=== PATIENT | female | born 1965 | race Caucasian/White ===

== ENCOUNTER 2017-07-24 10:33 | Day surgery (SDC) | payer OTHER ==
[~2017-07-24 10:33] MED LIST: Lactated Ringers 1,000 ML IV SCH; Lidocaine 1%/Sod Bicarbonate in NS 8.4% 1 ML Syringe IDERM PRN; Sodium Chloride 0.9% 10 ML Syringe FLUSH PRN
[2017-07-24] MEDS ORDERED: Midazolam 1 MG/ML 2 ML SDV ONE (11:07)
[2017-07-24] MEDS ORDERED: Lidocaine 1% 4 ML ONE (11:07)
[2017-07-24] MEDS ORDERED: Propofol 200 MG/20 ML SDV ONE (11:07)
[2017-07-24] MEDS ORDERED: fentaNYL 250 MCG/5 ML SDV ONE (11:07)
[2017-07-24] MEDS ORDERED: Ondansetron 4 MG/2 ML SDV ONE (11:07)
[2017-07-24] MEDS ORDERED: ceFAZolin 1 GM Vial ONE (11:08)
--- NOTE | 2017-07-24 11:08 | PCM.PREANE ---
Preanesthetic Assessment - Anesthesia/Transfusion/Family Hx Anesthesia History: Prior Anesthesia Without Reaction Family History of Anesthesia Reaction: No Transfusion History: No Prior Transfusion(s) - Review of Systems General: No Symptoms Pulmonary: No Symptoms Cardiovascular: No Symptoms Gastrointestinal: No Symptoms Neurological: No Symptoms Other: Reports: None - Physical Assessment NPO Status Date: 07/23/17 NPO Status Time: 23:00 Pulse: 77 O2 Sat by Pulse Oximetry: 95 Respiratory Rate: 18 Blood Pressure: 142/84 Temperature: 36.4 C Vital Signs: Last Vital Signs Temp 36.4 C 07/24/17 10:37 Pulse 71 07/24/17 10:37 Resp 18 07/24/17 10:37 BP 142/84 H 07/24/17 10:37 Pulse Ox 95 07/24/17 10:37 Height: 1.78 m Weight: 96.615 kg ASA Class: 2 Mental Status: Alert & Oriented x3 Airway Class: Mallampati = 1 Dentition: Reports: Normal Dentition Thyro-Mental Finger Breadths: 3 Mouth Opening Finger Breadths: 3 ROM/Head Extension: Full Lungs: Clear to Auscultation, Normal Respiratory Effort Cardiovascular: Regular Rate, Regular Rhythm, No Murmurs - Allergies Allergies/Adverse Reactions: Allergies Allergy/AdvReac Type Severity Reaction Status Date / Time No Known Allergies Allergy Verified 07/24/17 11:01 - Blood Blood Available: No Product(s) Available: None - Anesthesia Plan Pre-Op Medication Ordered: None - Acknowledgements Anesthesia Type Planned: General Anesthesia Pt an Appropriate Candidate for the Planned Anesthesia: Yes Alternatives and Risks of Anesthesia Discussed w Pt/Guardian: Yes Pt/Guardian Understands and Agrees with Anesthesia Plan: Yes PreAnesthesia Questionnaire HEENT History: Reports: Sinusitis, Other (See Below) Other HEENT History: tongue sore Cardiovascular History: Reports: Blood Clots/VTE/DVT Other Cardiovascular History: DVT Left lower leg 2012 Respiratory History: Reports: None Gastrointestinal History: Reports: GERD, Other (See Below) Other Gastrointestinal History: nausea Genitourinary History: Reports: None [employer]ER History: Reports: Musculoskeletal History: Reports: Back Pain, Chronic, Fibromyalgia, Other (See Below) Other Musculoskeletal History: calf pain, neck pain, 5th metatarsal fracture, neck stiffness, swelling, right knee pain Neurological History: Reports: Headaches, Chronic, Migraines Psychiatric History: Reports: Anxiety, Depression Endocrine/Metabolic History: Reports: None Hematologic History: Reports: Other (See Below) Other Hematologic History: blood clotting disorder Immunologic History: Reports: None Oncologic (Cancer) History: Reports: None Dermatologic History: Reports: None - Past Surgical History Head Surgeries/Procedures: Reports: None HEENT Surgical History: Reports: Naso-Sinus Surgery, Tonsillectomy Cardiovascular Surgical History: Reports: None Respiratory Surgical History: Reports: None GI Surgical History: Reports: Colonoscopy, Hernia Repair/Other Female Surgical History: Reports: Hysterectomy, Oophorectomy Male Surgical History: Reports: None Endocrine Surgical History: Reports: None Neurological Surgical History: Reports: None Musculoskeletal Surgical History: Reports: Arthroscopic Knee, Carpal Tunnel Other Musculoskeletal Surgeries/Procedures:: L ankle surgery Oncologic Surgical History: Reports: None Dermatological Surgical History: Reports: None - SUBSTANCE USE Smoking Status *Q: Never Smoker Tobacco Use Within Last Twelve Months: No Second Hand Smoke Exposure: Yes Days Per Week of Alcohol Use: 1 Number of Drinks Per Day: 1 Total Drinks Per Week: 1 Recreational Drug Use History: No - HOME MEDS Home Medications: Home Meds ALPRAZolam [Xanax] 0.5 mg PO BID PRN 03/02/15 [History] Aspirin/Acetaminophen/Caffeine [Vsskmgx-Ttelxmpdcrjud-Kfso Tab] 1 each PO ASDIRECTED PRN 11/16/15 [History] Cyclobenzaprine [Flexeril] 10 mg PO BID PRN 07/23/17 [History] DULoxetine HCl [Duloxetine HCl] 60 mg PO DAILY 07/23/17 [History] Omeprazole Magnesium [Prilosec Otc] 20 mg PO DAILY 07/23/17 [History] - CURRENT (IN HOUSE) MEDS Current Meds: Current Medications Lactated Ringer's (Ringers, Lactated) 1,000 mls @ 125 mls/hr IV ASDIRECTED JEFFREY Stop: 07/24/17 23:00 Lidocaine/Sodium Bicarbonate (Buffered Lidocaine 1% In Ns 8.4%) 0.25 ml IDERM ONETIME PRN PRN Reason: Prior to IV Start Stop: 07/24/17 18:00 Sodium Chloride (Saline Flush) 10 ml FLUSH ASDIRECTED PRN PRN Reason: Keep Vein Open Stop: 07/24/17 18:00
[2017-07-24] MEDS ORDERED: HYDROmorphone 0.5 MG/0.5 ML Syringe IVPUSH PRN (11:31)
[2017-07-24] MEDS ORDERED: fentaNYL 100 MCG/2 ML SDV IVPUSH PRN (11:31)
[2017-07-24] MEDS ORDERED: Ondansetron 4 MG/2 ML SDV IVPUSH PRN (11:31)
[2017-07-24] MEDS: Lidocaine 1% with EPINEPHrine 1:100,000 20 ML MDV ONE ×2 (11:33→11:38)
[2017-07-24] MEDS: Bupivacaine 0.5%/EPINEPHrine 1:200,000 50 ML MDV ONE ×2 (11:33→11:38)
[2017-07-24] MEDS ORDERED: Phenylephrine/Normal Saline 100 MCG/ML 10 ML Syringe ONE (11:56)
[2017-07-24] MEDS ORDERED: Dexamethasone 4 MG/ML 5 ML MDV ONE (11:57)
[2017-07-24] MEDS ORDERED: Ketorolac 30 MG/ML SDV ONE (12:27)
--- NOTE | 2017-07-24 12:36 | PCM.OPNOTE ---
- General Post-Op/Procedure Note Date of Surgery/Procedure: 07/24/17 Operative Procedure(s): Open umbilical hernia repair with mesh Findings: Incarcerated umbilical hernia containing omental fat with a mature sac and chronic scarring Pre Op Diagnosis: Symptomatic incarcerated umbilical hernia Post-Op Diagnosis: Same Anesthesia Technique: General LMA, Local Primary Surgeon: Moisés Alvarado Pathology: None EBL in mLs: 10 Complications: None Condition: Good Free Text/Narrative:: After adequate LMA general anesthesia was obtained the patient's abdomen was prepped then draped sterilely for an open umbilical hernia repair. After local analgesia was given a supraumbilical incision was made with a 15 blade through the skin into the subcutaneous tissues. I then used Metzenbaum scissors to separate the umbilical skin away from the hernia sac. I then the hernia sac from the surrounding subcutaneous tissues sharply and with cautery down to the fascia which was cleared about a centimeter so around the defect. The sac was then opened sharply then excised. The omentum could not be reduced because of its bulk. I clamped the base of the tongue of the omentum and then ligated it with a 3-0 Vicryl after excision. This allowed the omental stump to be easily reduced. I measured the fascial defect to 2 cm in diameter. A 4.6 cm mesh was then placed through the defect and secured to the fascia with closure using interrupted 0 Ethibond 6. I irrigated out the field with saline then reattached the umbilical skin to the midline. The subcutaneous tissues were closed with 3-0 Vicryl and the skin was closed with a 4-0 subcuticular Vicryl. Additional local analgesia was given prior to soft tissue closure. Mastisol and Steri-Strips were used for the dressing as well as gauze. There were no complications.
--- NOTE | 2017-07-24 12:38 | PCM.POSTAN ---
POST ANESTHESIA ASSESSMENT - MENTAL STATUS Mental Status: Alert, Oriented - VITAL SIGNS Pulse Rate: 93 SaO2: 94 Resp Rate: 10 Blood Pressure: 138/83 Temperature: 98 F - RESPIRATORY Respiratory Status: Respiratory Rate WNL, Airway Patent, O2 Saturation Stable, Supplemental Oxygen - CARDIOVASCULAR CV Status: Pulse Rate WNL, Blood Pressure Stable - GASTROINTESTINAL GI Status: No Symptoms - PAIN Pain Score: 0 - POST OP HYDRATION Hydration Status: Adequate & Stable
[2017-07-24] MEDS ORDERED: Acetaminophen/oxyCODONE 325-5 MG Tab PO PRN (13:13)
[2017-07-24 16:19] VITALS: BP 123/78
== END 2017-07-24 16:15 | disposition home or self-care (01) ==
LOC: JD.SDS 10:33
PROVIDERS: ATTEND Surgery
DX: K42.0 Umbilical hernia with obstruction, without gangrene (principal); K21.9 Gastro-esophageal reflux disease without esophagitis; F41.9 Anxiety disorder, unspecified; F32.9 Major depressive disorder, single episode, unspecified; G43.909 Migraine, unspecified, not intractable, without status migrainosus
CPT/HCPCS: 49587; A9270; C1781; J0690; J1100; J1885; J2001; J2250; J2405; J3010; J7120; J2704